=== PATIENT | female | born 1995 | race Caucasian/White ===

== ENCOUNTER → 2017-09-18 | Outpatient (CLI) | payer BC ==
--- NOTE | 2017-09-18 08:49 | DIAGNOSTIC IMAGING REPORT ---
ABDOMEN LIMITED (US) HISTORY: Pain. Nausea. R10.13,R11.0. COMPARISON: None. FINDINGS: Pancreas: The pancreas demonstrates a normal echotexture. Liver: Unremarkable. Gallbladder: Trace sludge versus reverberation artifact. No shadowing gallstones. No pericholecystic fluid. CBD: 4 mm Right kidney: No hydronephrosis. IMPRESSION: Trace gallbladder sludge versus technical artifact. No shadowing gallstones. Study is otherwise entirely normal. The above report was generated using voice recognition software. It may contain grammatical, syntax or spelling errors. Electronically signed by: Michele Philip M.D. 09/18/2017 8:47 AM Dictated Date/Time: 09/18/2017 8:46 AM
== END | disposition home or self-care (01) ==
LOC: C.ULTR 08:10
PROVIDERS: ATTEND Physician Assistant
DX: R10.13 Epigastric pain (principal); R11.0 Nausea

== ENCOUNTER → 2017-11-16 | Outpatient (CLI) | payer BC ==
[~2017-11-16] MED LIST: SINCALIDE INJ 1.7 MCG in SODIUM CHLORIDE 0.9% 100ML 100 ML IV ONE
--- NOTE | 2017-11-16 13:29 | DIAGNOSTIC IMAGING REPORT ---
NUCLEAR MEDICINE HEPATIC BILIARY SCAN WITH EJECTION FRACTION ANALYSIS CLINICAL HISTORY: R10.9 Abdominal pain R11.0 nausea [id number] COMPARISON STUDY: Biliary ultrasound dated 09/18/2017 FINDINGS: The patient was injected with 5.5 mCi of technetium 99m Choletec. Anterior imaging was performed. Hepatic excretion was unremarkable in appearance. There was normal passage of activity into small bowel. The gallbladder was first visualized on the 20 minute image. The 1 hour, the patient was administered 1.7 mcg of sincalide utilizing a 30 minute intravenous infusion. The gallbladder ejection fraction was borderline diminished measuring 32%. IMPRESSION: 1. No evidence of cystic duct obstruction 2. The gallbladder ejection fraction was borderline diminished measuring 32%. Electronically signed by: Stephane Campa M.D. 11/16/2017 1:28 PM Dictated Date/Time: 11/16/2017 1:24 PM
== END | disposition home or self-care (01) ==
LOC: C.NUCL 10:16
PROVIDERS: ATTEND Surgery
DX: R11.0 Nausea (principal); R10.9 Unspecified abdominal pain